=== PATIENT | female | born 1980 | race African-American/Black ===

== ENCOUNTER 2017-01-02 17:23 | Emergency (ER) ==
[2017-01-02 17:33] VITALS: BP 172/86
[2017-01-02 17:49] LABS: URINE CULTURE PL NEEDED? NO; URINE SOURCE CLEAN CATCH
[2017-01-02 18:14] LABS: BILIRUBIN URINE NEGATIVE (NEGATIVE); BLOOD URINE NEGATIVE (NEGATIVE); CLARITY CLEAR (CLEAR); COLOR YELLOW; GLUCOSE URINE NEGATIVE (NEGATIVE); LEUKOCYTES URINE NEGATIVE (NEGATIVE); NITRITE URINE NEGATIVE (NEGATIVE); PH URINE 6.5; PROTEIN URINE TRACE mg/dL (NEGATIVE); UROBILINOGEN URINE NORMAL
[2017-01-02] MEDS ORDERED: NORCO-5 PO ONE (18:57)
--- NOTE | 2017-01-02 19:02 | PROVIDER DOCUMENTATION ---
HPI-General Adult - General Chief Complaint: Female Stated Complaint: SHARP PAIN IN PELVIC AREA Time Seen by Provider: 01/02/17 18:26 Source: patient (Patient is a 36 year old black female, LMP 2 weeks ago, S/P appendectomy,who presents with sudden onset of sharp pelvic pain 2 days ago. Just started on hormonal replacement last month for her fibroids. Tolerating po. Pain is intermittent and worse with movement. No diarrhea or constipation.) Allergies/Adverse Reactions: Patient Allergies Allergy/AdvReac Type Severity Reaction Status Date / Time Penicillins AdvReac HIVES Verified 05/06/16 19:46 Sulfa (Sulfonamide AdvReac HIVES Verified 05/06/16 19:46 Antibiotics) Home Medications: Home Medication List Medication Instructions Recorded Confirmed Last Taken Type Albuterol Sulfate Inhaler 2 puff INH [id number] #1 inhaler 05/06/16 Unknown Rx [Ventolin Hfa] Albuterol [Albuterol Neb] 2.5 mg INH Q4H PRN PRN #1 neb 05/06/16 Unknown Rx Hydrocodone/APAP 5 mg/325 mg 1 tab PO Q6H PRN PRN #12 tablet 01/02/17 Unknown Rx [[place]-5] Review of Systems - Adult - REVIEW OF SYSTEMS - ADULT Constitutional: denies: chills, fever Eyes: reports: no symptoms reported Ears, Nose, Mouth & Throat: reports: no symptoms reported Cardiovascular: reports: no symptoms reported Respiratory: reports: no symptoms reported Gastrointestinal: reports: see HPI, nausea. denies: vomiting Genitourinary: reports: other (no vaginal bleeding). denies: dysuria, discharge , frequency, flank pain, urinary retention Musculoskeletal: reports: no symptoms reported Integumentary: reports: no symptoms reported Neurological: reports: no symptoms reported Psychiatric: reports: no symptoms reported Endocrine: reports: no symptoms reported Hematologic/Lymphatic: reports: no symptoms reported Allergic/Immunologic: reports: no symptoms reported All Other Systems: Reviewed and Negative Past History - Adult - PAST MEDICAL HISTORY-ADULT Review of Records: reports: Old Records Reviewed, Nursing Assessment Review, Medications Reviewed, Social history reviewed & non-contributory. Major Childhood Illnesses: reports: denies history Cardiovascular: reports: denies history Respiratory: reports: asthma Gastrointestinal: reports: denies history Obstetrical/Gynecological: reports: denies history Genitourinary: reports: denies history Musculoskeletal: reports: denies history Neurological: reports: denies history Endocrine/Immune: reports: denies history Other Conditions: reports: denies history - PRIOR SURGERIES/PROCEDURES Surgical/Procedure History: reports: reviewed, not pertinent - IMMUNIZATION STATUS Childhood Immunizations: See Nurse Assessment Flu Vaccine: See Nurse Assessment - FAMILY HISTORY Family History: reviewed, not pertinent Physical Exam-General - CONSTITUTIONAL General Appearance: appears well, alert, no apparent distress, obese, other ( ambulatory) - EYES Eyes: other (clear) - HEAD, EARS, NOSE, MOUTH & THROAT HENMT: normocephalic/atraumatic, moist mucous membranes - NECK Neck: non-tender, supple - RESPIRATORY Respiratory: lungs clear - CARDIOVASCULAR Cardiovascular: regular rate, rhythm - GASTROINTESTINAL (ABDOMEN) Abdominal Exam: normal bowel sounds, soft, other (mild lower quadrant tenderness R>L,no rebound or guarding) - GENITOURINARY Female Genitalia/Pelvic Exam: deferred Rectal Exam: deferred - LYMPHATIC Lymphatic: no adenopathy - MUSCULOSKELETAL Back Exam: normal inspection Extremity: normal range of motion - SKIN Integumentary: normal color, normal turgor, warm/dry - NEUROLOGIC Neurologic: grossly normal - PSYCHIATRIC Psych/Mental Status: anxious Departure - Departure Time of Disposition Order: 19:05 DIAGNOSIS: Pelvic pain, [place] Uterine fibroid Qualifiers: Uterine leiomyoma location: unspecified location Qualified Code(s): D25.9 - Leiomyoma of uterus, unspecified Disposition: HOME 01 Certified Medical Emergency: Emergent Condition: Stable Additional Instructions: followup with your director building on Wednesday for recheck Prescriptions: Hydrocodone/APAP 5 mg/325 mg [[place]-5] 1 tab PO Q6H PRN PRN #12 tablet PRN Reason: Pain Referrals: None,PCP [Primary Care Provider] -
== END 2017-01-02 19:29 | disposition home or self-care (01) ==
LOC: P.ED 17:23
DX: D25.9 Leiomyoma of uterus, unspecified (principal); N94.0 Mittelschmerz; R10.2 Pelvic and perineal pain; R11.0 Nausea; R10.814 Left lower quadrant abdominal tenderness; R10.813 Right lower quadrant abdominal tenderness
CPT/HCPCS: 81001; 81025; 99283